=== PATIENT | male | born 1965 ===

== ENCOUNTER 2022-05-30 21:02 | Emergency (ER) | payer OTHER | END 2022-05-30 21:30 | disposition home or self-care (01) | LOC: LL.ED 21:02 | DX: S00.03XA Contusion of scalp, initial encounter (principal); S50.11XA Contusion of right forearm, initial encounter; Z88.8 Allergy status to other drugs, medicaments and biological substances; W22.09XA Striking against other stationary object, initial encounter | CPT/HCPCS: 73090-RT; 99283 ==